=== PATIENT | male | born 1990 | race Caucasian/White ===

== ENCOUNTER 2019-01-17 15:46 | Emergency (ER) | payer OTHER ==
[~2019-01-17] VITALS: Ht 177.8 cm; Wt 77.5 kg
--- NOTE | 2019-01-17 15:57 | NUR ---
Patient from [facility] s/p wound vac removal. Reports swelling and tenderness at site which the wound clinic was concerned about. Ambulatory with steady gait NAD noted
[2019-01-17 16:22] LABS: BASOPHILS # (AUTO) 0.09 x10^3/uL (0-0.1); BASOPHILS % (AUTO) 1 % (0-1); EOSINOPHILS # (AUTO) 0.15 x10^3/uL (0-0.4); EOSINOPHILS % (AUTO) 2 % (1-7); LYMPHOCYTES # (AUTO) 2.56 x10^3/uL (1-3.4); LYMPHOCYTES % (AUTO) 31 % (22-44); MD NO; MEAN CORPUSCULAR HEMOGLOBIN 27.9 pg (27.5-34.5); MEAN CORPUSCULAR HGB CONC 32.7 g/dL (33.2-36.2); MEAN CORPUSCULAR VOLUME 85.4 fL (81-97); MEAN PLATELET VOLUME 8.3 fL (7.4-10.4); MONOCYTES # (AUTO) 0.67 x10^3/uL (0.2-0.8); MONOCYTES % (AUTO) 8 % (2-9); NEUTROPHILS # (AUTO) 4.79 x10^3/uL (1.8-6.8); NEUTROPHILS % (AUTO) 58 % (42-75); PLATELET COUNT 247 x10^3/uL (130-400); RED BLOOD COUNT 4.44 x10^6/uL (4.38-5.82)
[2019-01-17] MEDS ORDERED: SODIUM CHLORIDE FLUSH 10ML SYR IVF ONE (16:30)
[2019-01-17 16:32] LABS: ALBUMIN 3.8 g/dL (3.4-5.0); ANION GAP 7 mmol/L (5-15); CALCIUM 8.9 mg/dL (8.5-10.1); CHLORIDE 109 mmol/L (98-107); CREATININE 0.87 mg/dL (0.7-1.3)
--- NOTE | 2019-01-17 16:55 | NUR ---
CT READY FOR EXAM, IV?
--- NOTE | 2019-01-17 17:05 | NUR ---
Patient to CT with tech
[2019-01-17] MEDS ORDERED: OMNIPAQUE 350 MG/ML, 100ML BOTTLE ONE ×2 (17:28)
[2019-01-17 18:10] VITALS: BP 100/55
--- NOTE | 2019-01-17 18:14 | NUR ---
Patient resting in bed pending results from ct. VSS NAD noted. on cell phone.
--- NOTE | 2019-01-17 18:53 | NUR ---
Report given to Donovan. Patient ambulatory with steady gait to restroom
== END 2019-01-17 19:37 | disposition home or self-care (01) ==
LOC: ED 16:05
DX: S70.01XA Contusion of right hip, initial encounter (principal); R10.31 Right lower quadrant pain; X58.XXXA Exposure to other specified factors, initial encounter; Y93.89 Activity, other specified; Y92.89 Other specified places as the place of occurrence of the external cause; Y99.8 Other external cause status
CPT/HCPCS: 36415; 72193; 80048; 82040; 85025; 99284; Q9967

== ENCOUNTER → 2019-01-17 | Outpatient (CLI) | payer OTHER ==
[~2019-01-17] MED LIST: CLIN300C8 PO
== END | disposition home or self-care (01) ==
LOC: WOUND 15:12
PROVIDERS: ATTEND Family Medicine
DX: T81.31XD Disruption of external operation (surgical) wound, not elsewhere classified, subsequent encounter (principal); Z79.1 Long term (current) use of non-steroidal anti-inflammatories (NSAID); Z79.899 Other long term (current) drug therapy; Y83.8 Other surgical procedures as the cause of abnormal reaction of the patient, or of later complication, without mention of misadventure at the time of the procedure
CPT/HCPCS: 99214

== ENCOUNTER → 2019-02-07 | Outpatient (CLI) | payer OTHER | END | disposition home or self-care (01) | LOC: WOUND 14:55 | PROVIDERS: ATTEND Family Medicine | DX: T81.31XD Disruption of external operation (surgical) wound, not elsewhere classified, subsequent encounter (principal); Z79.1 Long term (current) use of non-steroidal anti-inflammatories (NSAID); Z79.899 Other long term (current) drug therapy; Y83.8 Other surgical procedures as the cause of abnormal reaction of the patient, or of later complication, without mention of misadventure at the time of the procedure | CPT/HCPCS: 99214 ==